=== PATIENT | male | born 1945 | race Caucasian/White ===

== ENCOUNTER → 2021-12-14 15:24 | Outpatient (CLI) | payer MEDICARE, SELFPAY ==
--- NOTE | 2021-12-14 15:26 | DI.RAD.S_ITS ---
PROCEDURE: XR KUB INDICATIONS: history or kidney stones TECHNIQUE: One view of the abdomen acquired. COMPARISON: [facility], CT, IVP (ABD & PEL WWO CONTRAST), 04/17/2014, 9:19. FINDINGS: Surgical changes and devices: None. Bowel: Bowel gas pattern is normal. Soft tissues: 2 oval calcifications are seen projecting over the left kidney, each measuring approximately 10 mm. Visualized solid organ contours appear normal in size. Bones: No suspicious bony lesions. Degenerative changes are seen in the spine. IMPRESSION: Two left-sided renal calculi. Dictated by: Ellis Mireles M.D. on 12/14/2021 at 14:48 Approved by: Ellis Mireles M.D. on 12/14/2021 at 14:50
== END ==
PROVIDERS: Family Provider Family Medicine; PCP Family Medicine; Referring Provider Specialist; Visit Provider Specialist
DX: N13.8 Other obstructive and reflux uropathy (principal); N40.1 Benign prostatic hyperplasia with lower urinary tract symptoms; N20.0 Calculus of kidney
CPT/HCPCS: 74018

== ENCOUNTER → 2022-01-14 15:21 | Outpatient (CLI) | payer MEDICARE, SELFPAY ==
[2022-01-14 15:56] LABS: COVID19 -Nasal RAPID Negative (Negative)
== END ==
PROVIDERS: Family Provider Family Medicine; PCP Family Medicine; Visit Provider Specialist
DX: N40.1 Benign prostatic hyperplasia with lower urinary tract symptoms (principal); N13.8 Other obstructive and reflux uropathy; N20.0 Calculus of kidney; Z20.822 Contact with and (suspected) exposure to COVID-19; Z87.442 Personal history of urinary calculi
CPT/HCPCS: 87635; 99215

== ENCOUNTER 2022-01-16 08:10 | Day surgery (SDC) | payer MEDICARE, SELFPAY ==
[2022-01-13 07:48] VITALS: BMI 23.0
--- NOTE | 2022-01-16 | DI.RAD.S_ITS ---
PROCEDURE: XR KUB INDICATIONS: Left nephrolithiasis TECHNIQUE: One view of the abdomen acquired. COMPARISON: [facility], , XR KUB, 12/14/2021, 15:32. FINDINGS: Surgical changes and devices: None Bowel: Moderate colorectal stool burden Soft tissues: Again seen are 2 radiopaque calcifications over the left renal fossa measuring 12 and 11 millimeters, possibly slightly enlarged compared to 12/14/2021. Bones: No suspicious bony lesions. IMPRESSION: 11 and 12 millimeter calculi projecting over the left renal fossa, possibly slightly enlarged compared to 12/14/2021. Dictated by: Basim Yuan M.D. on 01/16/2022 at 8:47 Approved by: Basim Yuan M.D. on 01/16/2022 at 8:48
[2022-01-16] MEDS: LACTATED RINGERS 1,000 ML 42 ML IV ×2 (08:33→11:40)
[2022-01-16 08:51] VITALS: BP 150/88; PULSE 92; RESP 16; TEMP 36.6; O2SAT 100; BMI 23.0
--- NOTE | 2022-01-16 10:35 | PM.PREOP ---
Pre-operative Note COVID-19 Criteria for continued procedure: Expected advancement of disease process, Possibility delay results in more complex future surgery or treatment, Deterioration of the patient's condition or overall health, Delay expected to result in less-positive ultimate med/surg outcome and Non-surgical alternatives not available or appropriate per current SOC Interval Note History & Physical reviewed/Exam performed by Physician: Yes Changes to H&P: No
[2022-01-16] MEDS: CEFAZOLIN 2 GM/100 ML PREMIX 100 ML IV (11:07)
--- NOTE | 2022-01-16 11:25 | SUR.OPER ---
Lithotomy on lithotripsy bed, head on pillow, arms secured on padded arm boards at <90 degrees abduction. Legs secured in padded yellow fins stirrups.
[2022-01-16 12:18] VITALS: BP 134/83; PULSE 54; RESP 12; TEMP 36.1; O2SAT 98
--- NOTE | 2022-01-16 12:22 | P.OP_ITS ---
Operative Date/Time/Diagnoses Date of procedure: 01/16/22 Time of procedure: 12:22 Pre-op diagnosis: 1. 1+ cm left renal calculi x2. Post-op diagnosis: same Procedure & Clinicians Procedure: 1. Left extracorporeal shockwave lithotripsy (2000 shocks times maximal power level 7.0). Same procedure as scheduled: Yes Indications: 1. Left renal calculi x2 Surgeon: Ila Salazar Click Yes if Unassisted: Yes Anesthesia Type: General Operative Notes Findings: 1. Urethra-normal caliber without annular stricture or lesion. 2. External sphincter-coapted with normal overlying urothelium. 3. 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 4. Bladder-1+ trabeculation and early cellule formation. Moderate intravesical protrusion of median lobe. Normal ureteral orifices bilaterally. No evidence of stone, tumor, or diverticulum. Closure Type: not applicable Specimen(s): none sent Applied: other (7 Bulgarian by 22-32 cm multi-length ureteral stent.) Estimated Blood Loss (mL): 0 Blood products transfused: none Procedure in detail: Patient was positioned in supine and was administered general anesthesia. The patient was then repositioned in semi lithotomy and the lower abdomen, genitalia, and groin were then prepped and draped in sterile fashion. The 22 [place]ian panendoscope was then passed the lower urinary tract with the findings as described above. A 0.35 hybrid ureteral guidewire was then advanced through the working port of the scope and then into the left ureteral orifice. Under direct and fluoroscopic guidance the wire was advanced proximally and coiled in the central renal pelvis. Next, a 7 [place]ian by 22-32 cm multi-length stent was selected and advanced over the hybrid guidewire, again under direct and fluoroscopic guidance. NO RETRIEVAL LINE WAS LEFT ATTACHED. The patient was then repositioned in supine. The index calculi, lying immediately adjacent to 1 another were then localized in the X, Y, and Z plane. Lithotripsy was commenced at minimal power level for 200 shocks. A 2 minute pause was then conducted. Lithotripsy was then resumed with gradually increasing power level to maximum 7.0. The stone fragments were localized as needed throughout the treatment. At 2000 shocks there was very good radiographic evidence of stone comminution. The patient was then awakened, transferred to [facility], and transported recovery in stable condition. Complications: none Post-operative Condition: stable Disposition: PACU Plan for aftercare: Discharge home.
[2022-01-16 12:23] VITALS: PULSE 54; RESP 14; O2SAT 97
[2022-01-16 12:28] VITALS: BP 104/68; PULSE 52; RESP 16; TEMP 36.5; O2SAT 97
[2022-01-16] MEDS: FUROSEMIDE 20 MG/2 ML VIAL IV (12:29)
[2022-01-16 12:50] VITALS: BP 102/65; PULSE 51; RESP 12; TEMP 36.6; O2SAT 99
[2022-01-16 13:10] VITALS: BP 110/68; PULSE 59; RESP 16; O2SAT 99
== END 2022-01-16 13:30 | disposition home or self-care (01) ==
PROVIDERS: Family Provider Family Medicine; PCP Family Medicine; Referring Provider Specialist; Visit Provider Specialist
PROC: (CPT 50590; principal; 2022-01-16 09:45)
PROC: (CPT 50590; 2022-01-16 09:45)
DX: N20.0 Calculus of kidney (principal); N40.0 Benign prostatic hyperplasia without lower urinary tract symptoms; E11.9 Type 2 diabetes mellitus without complications; Z79.84 Long term (current) use of oral hypoglycemic drugs
CPT/HCPCS: 50590; 00910; 74018; 82962; J0690; J1100; J1940; J2250; J2405; J2704; J3010

== ENCOUNTER → 2022-02-01 13:45 | Outpatient (CLI) | payer MEDICARE, SELFPAY ==
--- NOTE | 2022-02-01 13:47 | DI.RAD.S_ITS ---
PROCEDURE: XR KUB INDICATIONS: cystoscopy/placement left ureteral stent/left ESWL TECHNIQUE: One view of the abdomen acquired. COMPARISON: [facility], CT, IVP (ABD & PEL WWO CONTRAST), 04/17/2014, 9:19. [facility], CR, XR KUB, 01/16/2022, 8:22. [facility], CR, XR KUB, 12/14/2021, 15:32. FINDINGS: Surgical changes and devices: Left double-J ureteral stent. Bowel: Bowel gas pattern is normal. Soft tissues: Left kidney stones fragments. No suspicious abdominal calcifications. Visualized solid organ contours appear normal in size. Suspect small pleural effusion. Bones: No suspicious bony lesions. IMPRESSION: Left double-J ureteral stent projects in the expected location. Left kidney stone fragments. Suspect small pleural effusions. Dictated by: Chandrakant Mariscal M.D. on 02/01/2022 at 15:40 Approved by: Chandrakant Mariscal M.D. on 02/01/2022 at 15:42
== END ==
PROVIDERS: Family Provider Family Medicine; PCP Family Medicine; Referring Provider Specialist; Visit Provider Specialist
DX: N20.0 Calculus of kidney (principal); R33.9 Retention of urine, unspecified; Z96.0 Presence of urogenital implants
CPT/HCPCS: 74018

== ENCOUNTER → 2022-04-14 07:16 | Outpatient (CLI) | payer MEDICARE, SELFPAY ==
--- NOTE | 2022-04-14 07:18 | DI.US.S_ITS ---
PROCEDURE: US ABDOMEN LIMITED INDICATIONS: LEFT GROIN/INGUINAL PAIN AND LEFT LOWER QUADRANT PAIN. HISTORY OF RECENT LITHOTRIPSY AND STENT PLACEMENT LEFT KIDNEY. TECHNIQUE: Real-time focused scanning was performed of the abdomen, with image documentation. COMPARISON: None. FINDINGS: At the area of abnormality in left groin/left lower quadrant, no significant sonographic abnormality. Left kidney measures about 11 cm, without evidence of hydronephrosis. Multiple calculi are present, the largest at the inferior pole measuring up to 1.8 cm. Multiple left renal cysts, most significantly in the mid region measuring 3.8 cm. IMPRESSION: No significant sonographic abnormality at the area of soft tissue abnormality in the left groin/left lower quadrant. Partially evaluated left kidney with nephroliths and cysts. Dictated by: Basim Yuan M.D. on 04/14/2022 at 8:41 Approved by: Basim Yuan M.D. on 04/14/2022 at 8:42
== END ==
PROVIDERS: Family Provider Family Medicine; PCP Family Medicine; Referring Provider Specialist; Visit Provider Specialist
DX: N28.1 Cyst of kidney, acquired (principal); R33.9 Retention of urine, unspecified; N20.0 Calculus of kidney; E11.69 Type 2 diabetes mellitus with other specified complication; N52.1 Erectile dysfunction due to diseases classified elsewhere; N40.1 Benign prostatic hyperplasia with lower urinary tract symptoms; N13.8 Other obstructive and reflux uropathy; R10.30 Lower abdominal pain, unspecified; Z87.442 Personal history of urinary calculi; Z96.0 Presence of urogenital implants
CPT/HCPCS: 76705; 99215

== ENCOUNTER → 2022-04-30 09:58 | Outpatient (CLI) | payer MEDICARE, SELFPAY ==
[2022-04-30 10:42] LABS: COVID19 -Nasal RAPID Negative (Negative)
== END ==
PROVIDERS: Family Provider Family Medicine; PCP Family Medicine; Visit Provider Specialist
DX: Z20.822 Contact with and (suspected) exposure to COVID-19 (principal)
CPT/HCPCS: 87635; C9803

== ENCOUNTER 2022-05-01 07:57 | Day surgery (SDC) | payer MEDICARE, SELFPAY ==
[2022-04-28 12:11] VITALS: BMI 23.0
[2022-05-01] VITALS (7 sets, daily range): BP systolic 111–169; BP diastolic 61–95; PULSE 59–93; RESP 12–18; TEMP 36.1–36.4; O2SAT 97–99; BMI 24.4
--- NOTE | 2022-05-01 | DI.RAD.S_ITS ---
PROCEDURE: XR KUB INDICATIONS: Left renal calculi TECHNIQUE: One view of the abdomen acquired. COMPARISON: [facility], , XR KUB, 02/01/2022, 13:54. FINDINGS: Surgical changes and devices: Left ureterovesicular stent is unchanged in appearance. Bowel: Bowel gas pattern is normal. Soft tissues: Previous area of 1.1 cm calcification inferior to the ureterovesicular stent remains present although decreased in size now measuring approximately 0.5 cm. Visualized solid organ contours appear normal in size. Bones: No suspicious bony lesions. IMPRESSION: Decreased size of left renal calculus. Dictated by: Lillian Mendoza M.D. on 05/01/2022 at 11:56 Approved by: Lillian Mendoza M.D. on 05/01/2022 at 11:57
--- NOTE | 2022-05-01 08:07 | SUR.OPER ---
Patient supine on vendor set up ESWL table with padded arms at sides.
[2022-05-01] MEDS: LACTATED RINGERS 1,000 ML 21 ML IV ×2 (08:21→11:13)
--- NOTE | 2022-05-01 08:32 | PM.PREOP ---
Pre-operative Note COVID-19 Criteria for continued procedure: Expected advancement of disease process, Possibility delay results in more complex future surgery or treatment, Continuing or worsening of significant or severe pain, Delay expected to result in less-positive ultimate med/surg outcome and Non-surgical alternatives not available or appropriate per current SOC Interval Note History & Physical reviewed/Exam performed by Physician: Yes Changes to H&P: No
[2022-05-01] MEDS: CEFAZOLIN 2 GM/100 ML PREMIX 100 ML IV (08:45)
--- NOTE | 2022-05-01 09:03 | SUR.OPER ---
Lithotomy on ESWL table, head on pillow, arms secured padded at sides. Legs secured in padded stirrups.
[2022-05-01] MEDS: FUROSEMIDE 20 MG/2 ML VIAL IV (09:40)
--- NOTE | 2022-05-01 09:44 | PM.OP.1 ---
Operative Date/Time/Diagnoses Date of procedure: 05/01/22 Time of procedure: 09:25 Pre-op diagnosis: 1. Left renal calculi. 2. Retained left ureteral stent. Post-op diagnosis: same Procedure & Clinicians Procedure: 1. Second-stage Left extracorporeal shockwave lithotripsy (maximal power level 7.0 x 2000 shocks). 2. Cystoscopy/removal left ureteral stent. Same procedure as scheduled: Yes Indications: 1. Left renal calculi. 2. Retained left ureteral stent. Surgeon: Ila Salazar Click Yes if Unassisted: Yes Anesthesia Type: General Operative Notes Findings: 1. Index large residual fragments status post first-stage left ESWL significantly reduced in visualized volume on today's imaging. 2. Urethra-normal caliber without annular stricture or lesion. 3. External sphincter- coapted with normal overlying urothelium. 4. Prostate-4+ cm length with moderate lateral lobe hyperplasia. 5. Bladder-not re-evaluated. Left intact ureteral stent identified and engaged with alligator foreign body graspers and removed without incident. Closure Type: not applicable Specimen(s): none sent Estimated Blood Loss (mL): 0 Blood products transfused: none Procedure in detail: The patient was positioned in supine and was administered general anesthesia. The index calculi in the left lower pole were then localized in the X, Y, and Z plane. Lithotripsy was then commenced at minimal power level for 200 shocks. A 2 minute pause was then conducted. Lithotripsy was then resumed and power level was gradually increased to a maximum power level of 7. The stones and fragments were re- localized as needed throughout the case fluoroscopically. There is excellent radiographic evidence of stone comminution at completion of treatment. The patient was then repositioned in semi lithotomy and the lower abdomen, genitalia, and groin were then prepped and draped in sterile fashion. The 22 Bel[place]an panendoscope was then passed the lower urinary tract with the findings as described above. The the distal extent of the coil was engaged with the alligator foreign body graspers and the stent was removed without incident after drainage of bladder contents. The patient was then repositioned in supine, was awakened, [place] [facility] [place] then [place] in stable condition. Complications: none Post-operative Condition: stable Disposition: PACU Plan for aftercare: Discharge home.
== END 2022-05-01 11:14 | disposition home or self-care (01) ==
PROVIDERS: Family Provider Family Medicine; PCP Family Medicine; Referring Provider Specialist; Visit Provider Specialist
PROC: (CPT 50590; principal; 2022-05-01 09:15)
PROC: (CPT 50590; 2022-05-01 09:15)
DX: N20.0 Calculus of kidney (principal); Z46.6 Encounter for fitting and adjustment of urinary device; R33.9 Retention of urine, unspecified; N40.1 Benign prostatic hyperplasia with lower urinary tract symptoms; N13.8 Other obstructive and reflux uropathy; B35.6 Tinea cruris
CPT/HCPCS: 50590; 74018; 82962; J0690; J1100; J1885; J1940; J2405; J2704; J3010